=== PATIENT | male | born 1995 | race Caucasian/White ===

== ENCOUNTER 2019-02-10 13:54 | Emergency (ER) | payer SELFPAY ==
[2019-02-10] VITALS (11 sets, daily range): BP systolic 137–149; BP diastolic 81–86; PULSE 87; RESP 14; TEMP 37.1–37.2; O2SAT 95–99
[2019-02-10] MEDS: Normal Saline 1,000 ML 1000 ML IV (14:05)
--- NOTE | 2019-02-10 14:06 | W.ED.GENAD ---
Discharge Plan Disposition Patient Disposition: HOME Condition: Good Discharge Details Chief Complaint: Dizzy/Sync Clinical Impression: Hypoglycemia, Lightheadedness, Peripheral vertigo Primary Care Provider: Humberto Du ED Provider: Aleks Raymundo Home Meds and New Rx's Prescriptions: New meclizine 25 mg tablet 25 mg PO TID Qty: 14 RF: 0 Discharge Instructions Instructions: Non-diabetic Hypoglycemia (ED) Additional Instructions: Please make sure to eat small meals every 6 hours. Please drink 10-12 cups of water per day. If you notice any worsening of your symptoms, or any new symptoms such as vomiting, diarrhea, fever, chills, shortness of breath, chest pain, numbness, weakness, or fainting , please return immediately to the emergency department for reevaluation. Please follow up with your primary care provider as soon as possible for reassessment and reevaluation. As always, it was a pleasure participating in your medical care today. Referrals: Humberto Du [Primary Care Provider] - Medical Decision Making This is a 23-year-old male who presents today for evaluation of near syncope. The patient states that he was playing video games this morning, he had not eaten for over 12 hours, and he drank very little liquid. He began to feel dizzy and lightheaded. EMS arrived and his Accu-Chek was noted to be 55, he is given maple sugar, and by the time he arrived in the ER it was greater than 130. He is feeling much better at this time. Exam demonstrates mild horizontal nystagmus, no neurologic deficits. Bedside limited cardiac echo demonstrates excellent cardiac motility, normal ejection fraction, and no pericardial effusion. EKG is benign with no evidence of WPW, dagger like Q waves, hypertrophic cardiomyopathy, Brugada, or other abnormalities. Feel the patient signs and symptoms are clinically consistent with mild hypoglycemia secondary to a lack of oral intake, we will rehydrate, monitor sugar, reassess. We will give him meclizine for his dizziness, I feel he can most likely discharged home. I see no indication for immediate neuroimaging at this time with normal neurologic exam and complete resolution of his symptomatology after sugar intake. 2:59 PM Patient is feeling much better after meclizine, vital signs are notably reassuring, laboratory workup is benign with no significant electrolyte abnormalities. I feel his symptoms are secondary to dehydration, and the lack of appropriate oral intake. He is feeling much better at this time, would like to go home. Patient will be discharged with meclizine, instructions for continued good hydration and oral intake. I have extensively reviewed the treatment plan and discharge instructions with the patient and their family. I have addressed all patient concerns at this time. The patient and family was made aware of what symptoms to monitor for that would warrant a return to the emergency department. Discussed the plan with the patient and family, they demonstrate verbal understanding and agreement with our assessment and plan at this time. EKG 14: 04 Rate 78, intervals normal, sinus rhythm, no significant ST elevations or depressions, no T wave inversions, no significant Q waves. No evidence of WPW, epsilon wave, or delta wave. HPI General Date/Time Provider Initiated Documentation: 02/10/19 14:04. HPI Narrative: This is a 23-year-old male with no past medical history, who presents today for evaluations of feeling lightheaded. The patient last ate at 1 AM yesterday, he was up during the night playing video games, and then still playing video games this morning. He felt lightheaded, dizzy, slightly sweaty while playing these videogames, contacted EMS, initial blood sugar was noted to be 55, he was given maple syrup per protocol, and following this his blood sugar improved to the mid 70s. He otherwise had no complaints, no actual syncope. He denied chest pain, shortness of breath, numbness, tingling, weakness, headache, vision changes, vomiting, or diarrhea. He was transported to the ER, where his blood sugar was noted to be 134. He is feeling much better at this time. He has no additional complaints. He denies any pertinent family history of Sahil-Danlos syndrome, Marfan syndrome, sudden cardiac , intracranial aneurysms, AAA's, or aortic dissections. He has no other complaints at this time. He has no family history of diabetes. Related Data Home Medications Medication Instructions Recorded Confirmed meclizine 25 mg PO TID #14 tab 02/10/19 Previous Rx's Medication Instructions Recorded meclizine 25 mg PO TID #14 tab 02/10/19 Allergies Allergy/AdvReac Type Severity Reaction Status Date / Time amoxicillin Allergy Unverified 02/10/19 14:12 bee venom protein (honey bee) Allergy Unverified 02/10/19 14:12 General Stated Complaint: Dizzy/Sync KIP: 3 Review of Systems Review of Systems All systems reviewed & are unremarkable except as noted in HPI and below PFSH Social History Smoking/Tobacco Use Status: Current every day Tobacco Type: cigarettes Years smoked: 11 Alcohol Intake: current Alcohol Intake frequency: a few times a week Alcohol type: beer Drug use: Daily Substance use type: marijuana Do you feel safe at home: Yes Do you feel safe in your relationship?: Yes Exam Narrative Exam Narrative: 1.Const: Well-nourished, Well-developed, appearing stated age 2.Eyes: PERRL, no conjunctival injection, and symmetrical lids. 3.ENT: Atraumatic external nose and ears. dry MM. Neck: Symmetric, trachea midline, No thyromegaly. 4.CVS: +S1/S2, No murmurs or gallops. Peripheral pulses 2+ and equal in all extremities. Brisk capillary refill in all extremities. 5.RESP: Unlabored respiratory effort. Clear to auscultation bilaterally. No wheezes rales or rhonchi 6.GI: Soft, Nontender/Nondistended, No hepatosplenomegaly. No guarding or rebound. 7.MSK: Normocephalic/Atraumatic, Extremities w/o deformity or ttp No cyanosis or clubbing, Normal movement of all extremities 8.Skin: Warm, Dry. No rashes or lesions. 9.Neuro: bar tender II-XII grossly intact. Sensation grossly intact, no focal neurologic deficits. All 6 cardinal planes of vision are fully intact. No evidence of rotatory or vertical nystagmus. The patient demonstrated a normal [id number], good dexterity. There was no evidence of dysdiadochokinesia. Patient was able to ambulate without difficulty. There was no wide-based gait. Romberg, and hngi-uc-zdei are both normal on testing. Sensation was intact bilaterally as well as muscle strength bilaterally for all extremities. Patient was able to verbalize butter cup with no slurring, or miss pronunciation. Cerebellar function testing is normal. The patient demonstrates a normal hints exam with no findings concerning for a central event. No vertical nystagmus. The patient does have notable horizontal nystagmus. the head impulse test is negative for any significant central abnormality. Normal test of skew. No suggestion of a central cerebellar event. 10.Psych: (AAO) x3. Appropriate mood and affect Course Vital Signs Temperature 37.2 C 02/10/19 13:54 Pulse 87 02/10/19 13:54 Respiratory Rate 14 02/10/19 13:54 Blood Pressure 149/81 H 02/10/19 13:54 Pulse Oximetry 97 02/10/19 13:54 Temperature 37.2 C 02/10/19 13:54 Temperature Source Temporal Artery Scan 02/10/19 13:54 Pulse 87 02/10/19 13:54 Respiratory Rate 14 02/10/19 13:54 Blood Pressure 149/81 H 02/10/19 13:54 Blood Pressure Position Sitting 02/10/19 13:54 Pulse Oximetry 97 02/10/19 13:54 Oxygen Delivery Method Room Air 02/10/19 13:54 Oxygen Flow Rate 0 02/10/19 13:54 Pain Level 0 02/10/19 13:54
[2019-02-10] MEDS: Meclizine 25 MG TAB PO (14:09)
[2019-02-10 14:18] LABS: Abs Immature Grans 0.01 k/cumm (0.0-0.09); Absolute Basophil Count 0.03 k/cumm (0.0-0.2); Absolute Eosinophil Count 0.22 k/cumm (0.0-0.7); Absolute Monocyte Count 0.73 k/cumm (0.11-0.7); Absolute Neutrophil Count 3.94 k/cumm (1.2-6.7); Basophils % 0.4; Eosinophils % 2.9; HCT 49.2 % (40.0-50.0); HGB 17.2 g/dL (13.5-17.5); Immature Grans % 0.1; Lymphocytes % 35.4; Mean Corpuscular Hemoglobin 29.6 pg (27.0-33.0); Mean Corpuscular Volume 84.5 fL (80-95); Mean Platelet Volume 9.3 fL (8.0-11.0); Monocytes % 9.6; Neutrophils % 51.6; Platelet Count 338 x1000/uL (130-400); RBC 5.82 m/cumm (4.50-6.00); RBC Distribution Width 12.5 % (11.8-14.1); White Blood Cell Count 7.63 k/cumm (4.4-10.8)
--- NOTE | 2019-02-10 14:18 | ED.GENADUL_ITS ---
Discharge Plan Disposition Patient Disposition: HOME Condition: Good Discharge Details Chief Complaint: Dizzy/Sync Clinical Impression: Hypoglycemia, Lightheadedness, Peripheral vertigo Primary Care Provider: Humberto Du ED Provider: Aleks Raymundo Home Meds and New Rx's Prescriptions: New meclizine 25 mg tablet 25 mg PO TID Qty: 14 RF: 0 Discharge Instructions Instructions: Non-diabetic Hypoglycemia (ED) Additional Instructions: Please make sure to eat small meals every 6 hours. Please drink 10-12 cups of water per day. If you notice any worsening of your symptoms, or any new symptoms such as vomiting, diarrhea, fever, chills, shortness of breath, chest pain, numbness, weakness, or fainting , please return immediately to the emergency department for reevaluation. Please follow up with your primary care provider as soon as possible for reassessment and reevaluation. As always, it was a pleasure participating in your medical care today. Referrals: Humberto Du [Primary Care Provider] - Medical Decision Making This is a 23-year-old male who presents today for evaluation of near syncope. The patient states that he was playing video games this morning, he had not eaten for over 12 hours, and he drank very little liquid. He began to feel dizzy and lightheaded. EMS arrived and his Accu-Chek was noted to be 55, he is given maple sugar, and by the time he arrived in the ER it was greater than 130. He is feeling much better at this time. Exam demonstrates mild horizontal nystagmus, no neurologic deficits. Bedside limited cardiac echo demonstrates excellent cardiac motility, normal ejection fraction, and no pericardial effusion. EKG is benign with no evidence of WPW, dagger like Q w aves, hypertrophic cardiomyopathy, Brugada, or other abnormalities. Feel the patient signs and symptoms are clinically consistent with mild hypoglycemia secondary to a lack of oral intake, we will rehydrate, monitor sugar, reassess. We will give him meclizine for his dizziness, I feel he can most likely discharged home. I see no indication for immediate neuroimaging at this time with normal neurologic exam and complete resolution of his symptomatology after sugar intake. 2:59 PM Patient is feeling much better after meclizine, vital signs are notably reassuring, laboratory workup is benign with no significant electrolyte abnormalities. I feel his symptoms are secondary to dehydration, and the lack of appropriate oral intake. He is feeling much better at this time, would like to go home. Patient will be discharged with meclizine, instructions for continued good hydration and oral intake. I have extensively reviewed the treatment plan and discharge instructions with the patient and their family. I have addressed all patient concerns at this time. The patient and family was made aware of what symptoms to monitor for that would warrant a return to the emergency department. Discussed the plan with the patient and family, they demonstrate verbal understanding and agreement with our assessment and plan at this time. EKG 14: 04 Rate 78, intervals normal, sinus rhythm, no significant ST elevations or depressions, no T wave inversions, no significant Q waves. No evidence of WPW, epsilon wave, or delta wave. HPI General Date/Time Provider Initiated Documentation: 02/10/19 14:04 . HPI Narrative: This is a 23-year-old male with no past medical history, who presents today for evaluations of feeling lightheaded. The patient last ate at 1 AM yesterday, he was up during the night playing video games, and then still playing video games this morning. He felt lightheaded, dizzy, slightly sweaty while playing these videogames, contacted EMS, initial blood sugar was noted to be 55, he was given maple syrup per protocol, and following this his blood sugar improved to the mid 70s. He otherwise had no complaints, no actual syncope. He denied chest pain, shortness of breath, numbness, tingling, weakness, headache, vision changes, vomiting, or diarrhea. He was transported to the ER, where his blood sugar was noted to be 134. He is feeling much better at this time. He has no additional complaints. He denies any pertinent family history of Sahil- Danlos syndrome, Marfan syndrome, sudden cardiac , intracranial aneurysms, AAA's, or aortic dissections. He has no other complaints at this time. He has no family history of diabetes. Related Data Home Medications Medication Instructions Recorded Confirmed meclizine 25 mg PO TID #14 tab 02/10/19 Previous Rx's Medication Instructions Recorded meclizine 25 mg PO TID #14 tab 02/10/19 Allergies Allergy/AdvReac Type Severity Reaction Status Date / Time amoxicillin Allergy Unverified 02/10/19 14:12 bee venom protein (honey bee) Allergy Unverified 02/10/19 14:12 General Stated Complaint: Dizzy/Sync KIP: 3 Review of Systems Review of Systems All systems reviewed & are unremarkable except as noted in HPI and below PFSH Social History Smoking/Tobacco Use Status: Current every day Tobacco Type: cigarettes Years smoked: 11 Alcohol Intake: current Alcohol Intake frequency: a few times a week Alcohol type: beer Drug use: Daily Substance use type: marijuana Do you feel safe at home: Yes Do you feel safe in your relationship?: Yes Exam Narrative Exam Narrative: 1.Const: Well-nourished, Well-developed, appearing stated age 2.Eyes: PERRL, no conjunctival injection, and symmetrical lids. 3.ENT: Atraumatic external nose and ears. dry MM. Neck: Symmetric, trachea midline, No thyromegaly. 4.CVS: +S1/S2, No murmurs or gallops. Peripheral pulses 2+ and equal in all extremities. Brisk capillary refill in all extremities. 5.RESP: Unlabored respiratory effort. Clear to auscultation bilaterally. No wheezes rales or rhonchi 6.GI: Soft, Nontender/Nondistended, No hepatosplenomegaly. No guarding or rebound. 7.MSK: Normocephalic/Atraumatic, Extremities w/o deformity or ttp No cyanosis or clubbing, Normal movement of all extremities 8.Skin: Warm, Dry. No rashes or lesions. 9.Neuro: scheduling clerk II-XII grossly intact. Sensation grossly intact, no focal neurologic deficits. All 6 cardinal planes of vision are fully intact. No evidence of rotatory or vertical nystagmus. The patient demonstrated a normal elmpqs-djce-torawv, good dexterity. There was no evidence of dysdiadochokinesia. Patient was able to ambulate without difficulty. There was no wide-based gait. Romberg, and dipj-qn-qfrx are both normal on testing. Sensation was intact bilaterally as well as muscle strength bilaterally for all extremities. Patient was able to verbalize butter cup with no slurring, or miss pronunciation. Cerebellar function testing is normal. The patient demonstrates a normal hints exam with no findings concerning for a central event. No vertical nystagmus. The patient does have notable horizontal nystagmus. the head impulse test is neg ative for any significant central abnormality. Normal test of skew. No suggestion of a central cerebellar event. 10.Psych: (AAO) x3. Appropriate mood and affect Course Vital Signs Temperature 37.2 C 02/10/19 13:54 Pulse 87 02/10/19 13:54 Respiratory Rate 14 02/10/19 13:54 Blood Pressure 149/81 H 02/10/19 13:54 Pulse Oximetry 97 02/10/19 13:54 Temperature 37.2 C 02/10/19 13:54 Temperature Source Temporal Artery Scan 02/10/19 13:54 Pulse 87 02/10/19 13:54 Respiratory Rate 14 02/10/19 13:54 Blood Pressure 149/81 H 02/10/19 13:54 Blood Pressure Position Sitting 02/10/19 13:54 Pulse Oximetry 97 02/10/19 13:54 Oxygen Delivery Method Room Air 02/10/19 13:54 Oxygen Flow Rate 0 02/10/19 13:54 Pain Level 0 02/10/19 13:54
[2019-02-10] MEDS: Acetaminophen 500 MG TAB (14:39)
[2019-02-10 14:40] LABS: ALT 120 U/L (12-78); AST 32 U/L (15-37); Albumin 4.3 g/dL (3.4-5.0); Alkaline Phosphatase 101 U/L (46-116); Anion Gap 11.5 mmol/L (3-11); BUN 13 mg/dL (7-18); Bilirubin, Total 0.4 mg/dL (0.2-1.0); CO2 25.5 mmol/L (21.0-32.0); CREATININE 0.96 mg/dL (0.70-1.30); Calcium 9.3 mg/dL (8.5-10.1); Chloride 100 mmol/L (98-107); Glucose 153 mg/dL (70-100); Potassium 3.6 mmol/L (3.5-5.1); Sodium 137 mmol/L (136-145); Total Protein 8.3 g/dL (6.4-8.2)
[2019-02-10] MEDS: Ibuprofen 800 MG TAB (14:40)
[2019-02-10] MEDS: Meclizine 25 MG TAB (15:09)
== END 2019-02-10 15:16 | disposition home or self-care (01) ==
LOC: ER 15:04
PROVIDERS: Emergency Provider Student in an Organized Health Care Education/Training Program; PCP Family Medicine
DX: E16.2 Hypoglycemia, unspecified (principal); H81.399 Other peripheral vertigo, unspecified ear; R42 Dizziness and giddiness
CPT/HCPCS: 36415; 36416; 80053; 82962; 93005; 96360; 99284; 85025; 93010

== ENCOUNTER 2019-02-24 14:46 | Emergency (ER) | payer SELFPAY ==
[2019-02-24 14:48] VITALS: PULSE 104; RESP 20; TEMP 36.8; O2SAT 94
--- NOTE | 2019-02-24 15:09 | W.ED.GENAD ---
Discharge Plan Disposition Patient Disposition: HOME Condition: Stable Discharge Details Chief Complaint: Dizzy/Sync Clinical Impression: Ear infection, Sinusitis, Retained myringotomy tube in right ear, Vertigo Primary Care Provider: Humberto Du ED Provider: Estee Webber Home Meds and New Rx's Prescriptions: New prednisone 50 mg tablet 50 mg PO DAILY 4 Days Qty: 4 RF: 0 ofloxacin 0.3 % drops 10 drp OT DAILY 7 Days Qty: 1 RF: 0 clindamycin HCl 150 mg capsule 450 mg PO QID 10 Days Qty: 120 RF: 0 benzonatate [Tessalon Perles] 100 mg capsule 100 mg PO TID PRN (Reason: cough) Qty: 10 RF: 0 Continued meclizine 25 mg tablet 25 mg PO TID Qty: 14 RF: 0 Discharge Instructions Instructions: Sinusitis (ED), Ear Foreign Body (ED), Vertigo (ED), Otitis Media (ED) Additional Instructions: Take the antibiotics and steroids until finished. Use the Compazine and meclizine as needed directed for any dizziness or nausea. You can go to [facility] for assistance with filling your prescriptions. Call the ear nose and throat doctors office tomorrow to schedule a follow-up appointment for reevaluation on Thursday. You should receive a call from care management regarding a follow-up appointment with a primary care doctor. Return immediately to the emergency department with any worsening or concerning symptoms. Referrals: Adriel Stauffer DO [OSTEOPATHIC DOCTOR] - Discharge Data Discharge Date/Time-TO BE ENTERED AT DEPARTURE: 02/24/19 17:30 Discharge Physician: Estee Webber Medical Decision Making 23yo M who presents with vertigo like dizziness for the past 5 days. Seen here 2 weeks ago for similar complaint after playing video games and had a negative work-up and discharged home with meclizine. His EKG at that time noted a rate of 78 and sinus. Oxygen saturation 94% on room air. Patient has a right ear tube retained in right ear canal with surrounding yellowish fluid. Patient has minimal scattered wheezing throughout. Bilateral horizontal nystagmus. Reproducible vertigo with head movement. No focal deficits. Discussed with patient that it is possible that his symptoms are due to a retained right ear tube with surrounding infection. Also discussed that his symptoms could be due to possible viral/bacterial pneumonia, sinusitis. Will place an IV, bolus IV fluids, recheck labs, chest x-ray and give a dose of meclizine, prednisone and albuterol neb treatment and reassess. 1545 --patient states the spinning sensation is resolved but now complaining of generalized dizziness. Will give a dose of Compazine and reassess. Will obtain a CT head. 1640 --patient feels significantly better. Denies any dizziness at this time. Declining any further neb treatments. 1655 --CT head notes diffuse pansinusitis. Patient is feeling much better requesting to go home. Will send home with a prescription for steroids to treat for a possible ear infection/sinus infection. Discussed with ENT Dr. Stauffer and he recommended Augmentin and Floxin otic and will follow up with patient on Thursday. As patient is significantly better, appears nontoxic, afebrile, with normal white blood cell count, likely does not need a dedicated CT temporal bones at this time but this could be a consideration if symptoms do not improve or worsen. Patient is allergic to amoxicillin, so a prescription for clindamycin given. Patient had expressed difficulty with obtaining prescriptions due to lack of funds, and doses of medication were given here and for home as well as information for community connections. Medical Records Medical records reviewed: Yes I reviewed the patient's medical records. Imaging Data Radiologic Study: Radiologist's impression: PA AND LATERAL CHEST: The heart is normal in size. The lungs are clear. The mediastinal structures and pleura appear intact. CONCLUSION: Normal chest. Radiologic Study #2: Radiologist's impression: CT Head Without Contrast EXAM DATE/TIME: 02/24/2019 4:00 PM FINDINGS: Brain: Normal. No hemorrhage. No significant white matter disease. No edema. Ventricles: Normal. No ventriculomegaly. Bones/joints: Unremarkable. No acute fracture. Sinuses: Diffuse pansinusitis sparing the frontal sinuses. Mastoid air cells: Visualized mastoid air cells are unremarkable. No mastoid effusion. Soft tissues: Unremarkable. IMPRESSION: Diffuse pansinusitis sparing the frontal sinuses. Normal brain. Lab Data Lab results reviewed: Yes I reviewed the patient's lab results. HPI General Mode of arrival: ambulatory. Date/Time Provider Initiated Documentation: 02/24/19 14:54. Limitations to Documentation: no limitations. Information obtained by: patient. HPI Narrative: Patient is a 23-year-old male with no significant past medical history who presents to the ED with a complaint of spinning sensation for the past 4 days. Also admits to occasional nausea but denies any vomiting. He also admits to occasional right-sided ear pain and ringing.. Patient states he had bilateral ear tubes placed 8 7 and was told recently by that the right ear tube was still present. Patient was seen here 2 weeks ago for similar complaint of dizziness after playing video games and had a negative work-up and was discharged home with meclizine. Patient states the tabs of meclizine he was sent home with significantly helped his dizziness but he was unable to fill the prescription due to financial reasons. Patient also admits to cough with yellow sputum and shortness of breath over the past few days. He denies any chest pain or known fevers. He admits to occasional headache and blurry vision but denies any at present. He denies any neck pain. Related Data Home Medications Medication Instructions Recorded Confirmed meclizine 25 mg PO TID #14 tab 02/10/19 02/24/19 benzonatate [Tessalon Perles] 100 mg PO TID PRN #10 cap 02/24/19 clindamycin HCl 450 mg PO QID 10 Days #120 cap 02/24/19 ofloxacin 10 drp OT DAILY 7 Days #1 ml 02/24/19 prednisone 50 mg PO DAILY 4 Days #4 tab 02/24/19 Previous Rx's Medication Instructions Recorded meclizine 25 mg PO TID #14 tab 02/10/19 benzonatate [Tessalon Perles] 100 mg PO TID PRN #10 cap 02/24/19 clindamycin HCl 450 mg PO QID 10 Days #120 cap 02/24/19 ofloxacin 10 drp OT DAILY 7 Days #1 ml 02/24/19 prednisone 50 mg PO DAILY 4 Days #4 tab 02/24/19 Allergies Allergy/AdvReac Type Severity Reaction Status Date / Time amoxicillin Allergy Unverified 02/24/19 14:51 bee venom protein (honey bee) Allergy Unverified 02/24/19 14:51 General Stated Complaint: Dizzy/Sync KIP: 4 Review of Systems Review of Systems All systems reviewed & are unremarkable except as noted in HPI and below Constitutional Reports as per HPI, Denies chills and Denies fever(s) Eyes Denies blurry vision ENT Reports dizziness, Reports otalgia, Denies sore throat and Denies throat swelling Cardiovascular Denies chest pain and Denies dyspnea Respiratory Denies cough and Denies dyspnea Gastrointestinal Denies abdominal pain, Denies diarrhea, Reports nausea and Denies vomiting Genitourinary Denies hematuria and Denies dysuria Musculoskeletal Denies back pain and Denies numbness Integumentary/Breasts Denies lesions and Denies rash Neurologic Reports dizziness, Denies focal weakness and Denies numbness Allergic/Immunologic Denies throat swelling [facility] Medical History No significant past medical history (Acute) Surgical History History of placement of ear tubes (Acute) Social History Smoking/Tobacco Use Status: Current every day Tobacco Type: cigarettes Alcohol Intake: former Drug use: Daily Substance use type: marijuana Do you feel safe at home: Yes Do you feel safe in your relationship?: Yes Exam Const General: cooperative and healthy appearing Orientation: alert and awake HENMT Head: normal to inspection Ears: hearing grossly normal bilaterally, external ears normal and other (Tube noted within R ear canal with surrounding yellow discharge. ) General nose exam: external nose normal Face and sinus: normal facial exam Mouth: oral mucosae normal Teeth and gingiva: dentition normal Throat: posterior oropharynx normal Eyes General: appearance normal, both eyes and all related structures Eyelids: eyelids normal Pupils: PERRL EOM: EOM intact bilaterally and nystagmus (b/l horizontal) Neck Neck: normal visual inspection Lymphatic: no lymphadenopathy noted Chest Chest: normal inspection of the chest Resp Effort & Inspection: normal respiratory effort and able to speak in complete sentences Auscultation: clear to auscultation bilaterally Cardio Rate: regular rate Rhythm: regular rhythm GI Inspection: normal to inspection Palpation: soft, not firm, no guarding, no hepatosplenomegaly, no masses and nontender Auscultation: normal bowel sounds Back/Spine/Pelvis Back: no CVA tenderness Skin General skin exam: no rashes or lesions noted Neuro General: alert, awake, oriented x3, gait normal, moves all extremities, no meningeal signs, no focal motor deficits and CN's II-XI intact bilaterally Cranial Nerves: nystagmus (b/l horizontal) Cognition: normal cognition Speech: speech normal Gait: normal gait Motor: muscle tone normal throughout and strength 5/5 throughout Sensory Exam: no sensory deficits noted Extrem General: normal to inspection, full ROM and normal capillary refill Psych Appearance: grossly normal Mental Status: mental status grossly normal Speech and Movement: speech and movement normal Affect: normal affect Thought Process: normal Course Vital Signs Temperature 98.2 F 02/24/19 14:48 Pulse 104 H 02/24/19 14:48 Respiratory Rate 20 02/24/19 14:48 Pulse Oximetry 94 L 02/24/19 14:48 Temperature 98.2 F 02/24/19 14:48 Pulse 104 H 02/24/19 14:48 Respiratory Rate 20 02/24/19 14:48 Respiratory Effort Non-Labored 02/24/19 14:48 Pulse Oximetry 94 L 02/24/19 14:48 Oxygen Delivery Method Room Air 02/24/19 14:48 Oxygen Flow Rate 0 02/24/19 14:48 End Tidal Co2 149 02/24/19 14:48 Pain Level 5 02/24/19 14:48
--- NOTE | 2019-02-24 15:10 | DI.RAD_ITS ---
SYMPTOMS/DIAGNOSIS: COUGH, SHORTNESS OF BREATH, ? PNEUMONIA PA AND LATERAL CHEST: The heart is normal in size. The lungs are clear. The mediastinal structures and pleura appear intact. CONCLUSION: Normal chest.
[2019-02-24] MEDS: Albuterol/Ipratropium 3 ML UPD VIAL UPD (15:26)
[2019-02-24] MEDS: Meclizine 25 MG TAB PO (15:27)
[2019-02-24] MEDS: Normal Saline 1,000 ML 1000 ML IV (15:27)
[2019-02-24 15:33] LABS: Abs Immature Grans 0.01 k/cumm (0.0-0.09); Absolute Basophil Count 0.04 k/cumm (0.0-0.2); Absolute Eosinophil Count 0.19 k/cumm (0.0-0.7); Absolute Lymphocyte Count 2.38 k/cumm (1.2-3.4); Absolute Monocyte Count 0.68 k/cumm (0.11-0.7); Absolute Neutrophil Count 4.38 k/cumm (1.2-6.7); Basophils % 0.5; Eosinophils % 2.5; HCT 48.3 % (40.0-50.0); HGB 17.2 g/dL (13.5-17.5); Immature Grans % 0.1; Mean Corp. HGB Concentration 35.6 g/dL (32.0-36.0); Mean Corpuscular Hemoglobin 29.9 pg (27.0-33.0); Mean Corpuscular Volume 83.9 fL (80-95); Mean Platelet Volume 9.7 fL (8.0-11.0); Monocytes % 8.9; Platelet Count 361 x1000/uL (130-400); RBC 5.76 m/cumm (4.50-6.00); RBC Distribution Width 12.5 % (11.8-14.1); White Blood Cell Count 7.68 k/cumm (4.4-10.8)
[2019-02-24 15:43] LABS: BUN 14 mg/dL (7-18); CREATININE 1.14 mg/dL (0.70-1.30); Calcium 9.6 mg/dL (8.5-10.1); Chloride 101 mmol/L (98-107); Glucose 103 mg/dL (70-100); Potassium 3.9 mmol/L (3.5-5.1); Sodium 138 mmol/L (136-145)
[2019-02-24] MEDS: Prochlorperazine 10 MG/2 ML VIAL IVP (16:08)
[2019-02-24] MEDS: predniSONE 20 MG TAB 60 MG PO (16:08)
--- NOTE | 2019-02-24 16:46 | DI.CT_ITS ---
SYMPTOM/DIAGNOSIS: DIZZINESS NONCONTRAST HEAD CT: A noncontrast cranial CT was performed. Note is made of moderate mucoperiosteal thickening involving frontal, ethmoid, maxillary and sphenoid sinuses with only moderate involvement of frontal sinuses. Mastoid air cells are hypoplastic bilaterally with some fluid and soft tissue attenuation in the mastoid air cells and middle ear cavities bilaterally, question chronic otitis/serous mastoiditis. No bony destruction is seen involving the temporal bone structures or paranasal sinuses. Orbital structures appear intact. Ventricular system is normal in appearance. No evidence of intracranial hemorrhage, mass effect or midline shift. CONCLUSION: No evidence of acute intracranial process. Findings consistent with chronic pansinusitis and otitis/mastoiditis.
--- NOTE | 2019-02-24 16:49 | DI.VRAD_ITS ---
EXAM: CT Head Without Contrast EXAM DATE/TIME: 02/24/2019 4:00 PM CLINICAL HISTORY: 23 years old, male; Signs and symptoms; Patient HX: Dizziness, R/O acute process TECHNIQUE: Imaging protocol: Axial computed tomography images of the head/brain without contrast. Coronal and sagittal reformatted images were created and reviewed. Radiation optimization: All CT scans at this facility use at least one of these dose optimization techniques: automated exposure control; mA and/or kV adjustment per patient size (includes targeted exams where dose is matched to clinical indication); or iterative reconstruction. COMPARISON: No relevant prior studies available. FINDINGS: Brain: Normal. No hemorrhage. No significant white matter disease. No edema. Ventricles: Normal. No ventriculomegaly. Bones/joints: Unremarkable. No acute fracture. Sinuses: Diffuse pansinusitis sparing the frontal sinuses. Mastoid air cells: Visualized mastoid air cells are unremarkable. No mastoid effusion. Soft tissues: Unremarkable. IMPRESSION: Diffuse pansinusitis sparing the frontal sinuses. Normal brain Dictated and Authenticated by: Natasha Vidal MD. Ordering:LEON Fontanez MD
[2019-02-24] MEDS: Prochlorperazine 10 MG TAB 20 MG PO (17:15)
[2019-02-24] MEDS: Benzonatate 100 MG CAP PO ×2 (17:26)
[2019-02-24] MEDS: Albuterol HFA 8 GM 60 PUFF INH IH (17:26)
[2019-02-24] MEDS: Clindamycin 150 MG CAP 450 MG PO (17:26)
[2019-02-24 17:27] VITALS: BP 152/80; PULSE 86; RESP 18; TEMP 36.8; O2SAT 94
== END 2019-02-24 17:30 | disposition home or self-care (01) ==
PROVIDERS: Emergency Provider Physician Assistant; PCP Family Medicine
DX: H66.92 Otitis media, unspecified, left ear (principal); J01.90 Acute sinusitis, unspecified; R42 Dizziness and giddiness; Z96.22 Myringotomy tube(s) status
CPT/HCPCS: 36415; 80048; 93005; 96361; 96374; 99285; 70450; 71046; 85025; 93010; J0780; J7512; J7620

== ENCOUNTER 2019-03-13 15:35 | Emergency (ER) | payer SELFPAY ==
[2019-03-13 15:38] VITALS: BP 158/95; PULSE 80; RESP 16; TEMP 36.7; O2SAT 98
--- NOTE | 2019-03-13 15:44 | ED.GENADUL_ITS ---
Discharge Plan Disposition Patient Disposition: HOME Condition: Improving Discharge Details Chief Complaint: Headache Clinical Impression: Otitis media of right ear, Dizziness, Headache, Retained myringotomy tube in right ear Primary Care Provider: Humberto Du ED Provider: Estee Webber Home Meds and New Rx's Prescriptions: New clindamycin HCl 150 mg capsule 450 mg PO TID 7 Days Qty: 63 RF: 0 naproxen 250 mg tablet 250 mg PO BID PRN (Reason: pain) Qty: 20 RF: 0 Discharge Instructions Instructions: Otitis Media (ED) Additional Instructions: Apply the Ciprodex eardrops 3 drops twice daily in the right ear for the next 10 days. Take the clindamycin antibiotic as directed until finished. Take the naproxen medication as needed and directed for pain. You will receive a call from care management regarding a follow-up appointment with ear nose and throat doctor this week. Return immediately to the emergency department with any worsening or new concerning symptoms. Referrals: Adriel Stauffer DO [OSTEOPATHIC DOCTOR] - Sarthak Perera MD [ [facility] STAFF PHYSICIAN] - Discharge Data Discharge Date/Time-TO BE ENTERED AT DEPARTURE: 03/13/19 21:38 Discharge Physician: Estee Webber Medical Decision Making 23-year-old male presents with chronic dizziness and headache for the past few weeks. Has been treated for sinusitis in the past at multiple different hospitals. Most recently was seen here earlier this month and diagnosed with likely sinus infection and was given antibiotics and steroids but he states he was unable to fill these due to lack of funds. Patient has a retained right ear tube which she states was placed at age 5. There appears to be a yellowish fluid within here which could be possibly pus. He has no focal deficits on exam. Differential diagnosis includes migraines, deep ear infection such as abscess, vertigo, dehydration, sinusitis. He has no focal meningeal signs and denies any fever or neck pain so do not suspect meningitis. Will place an IV, labs, CT head and temporal bones and give a dose of Toradol and fluids. 1900 --labs and imaging reviewed. Normal white blood cell count. CT head notes opacities in the middle ear, right worse than left may represent information or infection. No other acute findings. CT temporal bones notes extensive opacification of the mastoid air cells bilaterally as well as extensive right and moderate left opacification of the middle ear canals and mild opacification of the right posterior external ear canal findings worrisome for otomastoiditis. No bony destruction or soft tissue abscess. 1999 --d/w ENT -if patient has no fever and no external signs of mastoiditis, not consistent with mastoiditis. Recommends to treat this as an otitis media with purulent discharge which could be consistent with causing his headache and vertigo. As patient has been given multiple prescription for antibiotics in the past including Ciprodex and clindamycin and has not filled them, he has not been taking proper treatment for this. Recommend Ciprodex HC and clindamycin. Recommends follow-up with ENT here or can follow-up with [facility]. Patient feels significantly better and his dizziness and headache is significantly improved. Patient states he feels good to go home. Was sent home with a prescription for naproxen, and clindamycin. Patient was given Ciprodex bottle to go. We will also send home with 4 doses of clindamycin. Patient placed on care management list to help arrange for follow-up appointment with ENT here to this week. Patient instructed to return here immediately with any worsening or new concerning symptoms. Medical Records Medical records reviewed: Yes I reviewed the patient's medical records. Imaging Data Radiologic Study: Radiologist's impression: CT Head Without Contrast EXAM DATE/TIME: 03/13/2019 4:08 PM CLINICAL HISTORY: 23 years old, male; Signs and symptoms; Other: Headache, dizziness TECHNIQUE: Imaging protocol: Axial computed tomography images of the head without contrast. Coronal and sagittal reformatted images were created and reviewed. Radiation optimization: All CT scans at this facility use at least one of these dose optimization techniques: automated exposure control; mA and/or kV adjustment per patient size (includes targeted exams where dose is matched to clinical indication); or iterative reconstruction. COMPARISON: CT HEAD WO 02/24/2019 4:33 PM FINDINGS: Brain: Normal. No hemorrhage. Unremarkable white matter. No mass effect. Ventricles: Normal. No ventriculomegaly. Bones/joints: Unremarkable. No acute fracture. Sinuses: The opacity in the sinuses seen on the prior study has mostly resolved. Mastoid air cells: Visualized mastoid air cells are well aerated. No mastoid effusion. Auditory system: Opacities in the middle ear, right worse than left, may represent inflammation or infection (3:8). Soft tissues: Unremarkable. IMPRESSION: 1. Opacities in the middle ear, right worse than left, may represent inflammation or infection (3:8). 2. The opacity in the sinuses seen on the prior study has mostly resolved. 3. No acute intracranial hemorrhage Radiologic Study #2: Radiologist's impression: CT Temporal Bones With Contrast. EXAM DATE/TIME: 03/13/2019 4:08 PM CLINICAL HISTORY: 23 years old, male; Signs and symptoms; Sinusitis and other: RT ear pain; Acute; Patient HX: Rule out abscess TECHNIQUE: Imaging protocol: Axial computed tomography images of the temporal bones with intravenous contrast. Coronal and sagittal reformatted images were created and reviewed. Radiation optimization: All CT scans at this facility use at least one of these dose optimization techniques: automated exposure control; mA and/or kV adjustment per patient size (includes targeted exams where dose is matched to clinical indication); or iterative reconstruction. Contrast material: OMNIPAQUE 350; Contrast volume: 100 ml; Contrast route: IV; COMPARISON: CT HEAD WO 03/13/2019 5:09 PM FINDINGS: Right ossicles and middle ear: See below. Right inner ear: Normal. Right facial nerve canal: Normal. Right internal auditory canal: Normal. Right external auditory canal: Normal. Right carotid canal: Normal. Right mastoid air cells: There is extensive opacification of the mastoid air cells bilaterally, which are not well aerated. Right temporomandibular joint: Normal. Left ossicles and middle ear: See below. Left inner ear: Normal. Left facial nerve canal: Normal. Left internal auditory canal: Normal. Left external auditory canal: Normal. Left carotid canal: Normal. Left mastoid air cells: See above. Left temporomandibular joint: Normal. Sinuses: There is a small left inferior maxillary sinus polyp or mucous retention cyst. There is additional opacification in the right superior maxillary sinus with opacification of the right ostiomeatal complex. Bones/joints: See Auditory System Finding. Auditory system: There is extensive right and moderate left opacification of the middle ear canals. There is no erosion of the ossicles. The scutum appears intact. There is mild opacification of the right posterior external ear canal. IMPRESSION: 1. There is extensive opacification of the mastoid air cells bilaterally, which are not well aerated. 2. There is extensive right and moderate left opacification of the middle ear canals. There is no erosion of the ossicles. The scutum appears intact. 3. There is mild opacification of the right posterior external ear canal. Additional mild sinus thickening as detailed above. Findings are worrisome for otomastoiditis. There is no bony destruction to suggest cholesteatoma. No enhancing soft tissue abscess is seen. Lab Data Lab results reviewed: Yes I reviewed the patient's lab results. Laboratory Tests Range/Units 03/13/19 03/13/19 16:30 16:30 WBC (4.4-10.8) k/cumm 6.43 RBC (4.50-6.00) m/cumm 5.70 Hgb (13.5-17.5) g/dL 17.0 Hct (40.0-50.0) % 48.4 MCV (80-95) fL 84.9 MCH (27.0-33.0) pg 29.8 MCHC (32.0-36.0) g/dL 35.1 RDW (11.8-14.1) % 12.7 Plt Count (130-400) x1000/uL 335 MPV (8.0-11.0) fL 9.6 Immature Gran % 0.2 Neutrophils % 57.0 Lymphocytes % 29.2 Monocytes % 9.5 Eosinophils % 3.6 Basophils % 0.5 Absolute Neutrophils (1.2-6.7) k/cumm 3.67 Absolute Lymphocytes (1.2-3.4) k/cumm 1.88 Absolute Monocytes (0.11-0.7) k/cumm 0.61 Absolute Eosinophils (0.0-0.7) k/cumm 0.23 Absolute Basophils (0.0-0.2) k/cumm 0.03 Sodium (136-145) mmol/L 137 Potassium (3.5-5.1) mmol/L 3.9 Chloride (98-107) mmol/L 101 Carbon Dioxide (21.0-32.0) mmol/L 27.0 Anion Gap (3-11) mmol/L 9.0 BUN (7-18) mg/dL 9 Creatinine (0.70-1.30) mg/dL 0.89 Estimated GFR/1.73 m2 (mL/min/1.73m2) >= 60.00 Glucose (70-100) mg/dL 97 Calcium (8.5-10.1) mg/dL 9.6 Total Bilirubin (0.2-1.0) mg/dL 0.9 AST (15-37) U/L 46 H ALT (12-78) U/L 180 H Alkaline Phosphatase (46-116) U/L 80 Total Protein (6.4-8.2) g/dL 8.0 Albumin (3.4-5.0) g/dL 4.3 HPI General Mode of arrival: ambulatory . Date/Time Provider Initiated Documentation: 03/13/19 15:42 . Limitations to Documentation: no limitations . Information obtained by: patient . HPI Narrative: Patient is a 23-year-old male who presents the ED with a complaint of chronic dizziness and headaches for the past few weeks. Patient was seen here 2 weeks ago for the same complaint and diagnosed with sinus infection and sent home with antibiotics and steroids. Patient states he did not have the money to fill these and did not take them. Patient states he was seen at a hospital in [facility] for the symptoms and was diagnosed with sinusitis and sent home with Bactrim. Patient states he also did not have any funds at that time and states he was given a $20 bill by the physician to fill his prescription for Bactrim. Patient states he had improvement of his symptoms with Bactrim until he ran out of this 3 days ago. Patient describes the headache as frontal but also occasionally radiating to both sides of his head and the back of his head. He describes the dizziness is alternating lightheadedness and vertigo. He describes the headache as pressure- like. He states at times he feels disoriented and cannot focus which is better with meclizine. He denies any ear pain, fever or vomiting. He does admit to occasional nausea. He states he cannot take steroids or Sudafed due to the increase in energy which makes him feel worse. Patient denies any ear pain or drainage. Related Data Home Medications Medication Instructions Recorded Confirmed clindamycin HCl 450 mg PO TID 7 Days #63 cap 03/13/19 naproxen 250 mg PO BID PRN #20 tab 03/13/19 Previous Rx's Medication Instructions Recorded clindamycin HCl 450 mg PO TID 7 Days #63 cap 03/13/19 naproxen 250 mg PO BID PRN #20 tab 03/13/19 Allergies Allergy/AdvReac Type Severity Reaction Status Date / Time amoxicillin Allergy Unverified 03/13/19 15:43 bee venom protein (honey bee) Allergy Unverified 03/13/19 15:43 General Stated Complaint: Headache KIP: 3 Review of Systems Review of Systems All systems reviewed & are unremarkable except as noted in HPI and below Constitutional Reports as per HPI, Denies chills, Denies fever(s) and Reports headache(s) Eyes Denies blurry vision ENT Reports dizziness, Reports headache(s), Reports disequilibrium, Denies sore throat and Denies throat swelling Cardiovascular Denies chest pain and Denies dyspnea Respiratory Denies cough and Denies dyspnea Gastrointestinal Denies abdominal pain, Denies diarrhea and Denies vomiting Genitourinary Denies hematuria and Denies dysuria Musculoskeletal Denies back pain and Denies numbness Integumentary/Breasts Denies lesions and Denies rash Neurologic Reports dizziness, Reports headache(s), Denies focal weakness, Denies numbness and Reports disequilibrium Allergic/Immunologic Denies throat swelling [facility] Medical History No significant past medical history (Acute) Surgical History History of placement of ear tubes (Acute) Social History Smoking/Tobacco Use Status: Current every day Tobacco Type: cigarettes Alcohol Intake: former Drug use: Daily Substance use type: marijuana Do you feel safe at home: Yes Do you feel safe in your relationship?: Yes Exam Const General: cooperative and healthy appearing Orientation: alert and awake [facility] Head: normal to inspection Ears: hearing grossly normal bilaterally, external ears normal and TM abnormal other (retained ear tube noted with surrouding yellow fluid - pus?. L TM within normal limits) General nose exam: external nose normal Face and sinus: normal facial exam Mouth: oral mucosae normal Teeth and gingiva: dentition normal Throat: posterior oropharynx normal Eyes General: appearance normal, both eyes and all related structures Eyelids: eyelids normal Pupils: PERRL EOM: EOM intact bilaterally Neck Neck: normal visual inspection Lymphatic: no lymphadenopathy noted Chest Chest: normal inspection of the chest Resp Effort & Inspection: normal respiratory effort and able to speak in complete sentences Auscultation: clear to auscultation bilaterally Cardio Rate: regular rate Rhythm: regular rhythm GI Inspection: normal to inspection Palpation: soft, not firm, no guarding, no hepatosplenomegaly, no masses and nontender Auscultation: normal bowel sounds Back/Spine/Pelvis Back: no CVA tenderness Skin General skin exam: no rashes or lesions noted Neuro General: alert, awake, oriented x3, moves all extremities, no meningeal signs and no focal motor deficits Cranial Nerves: CN's II-XI intact bilaterally Cognition: normal cognition Speech: speech normal Gait: normal gait Motor: muscle tone normal throughout and strength 5/5 throughout Sensory Exam: no sensory deficits noted Extrem General: normal to inspection, full ROM and normal capillary refill Psych Appearance: grossly normal Mental Status: mental status grossly normal Speech and Movement: speech and movement normal Affect: normal affect Thought Process: normal Course Vital Signs Temperature 98.1 F 03/13/19 15:38 Pulse 80 03/13/19 15:38 Respiratory Rate 16 03/13/19 15:38 Blood Pressure 158/95 H 03/13/19 15:38 Pulse Oximetry 98 03/13/19 15:38 Temperature 98.1 F 03/13/19 15:38 Temperature Source Skin 03/13/19 15:38 Pulse 80 03/13/19 15:38 Respiratory Rate 16 03/13/19 15:38 Respiratory Effort Non-Labored 03/13/19 15:42 Blood Pressure 158/95 H 03/13/19 15:38 Pulse Oximetry 98 03/13/19 15:38 Oxygen Delivery Method Room Air 03/13/19 15:38 Oxygen Flow Rate 0 03/13/19 15:38 Pain Level 7 03/13/19 15:38
--- NOTE | 2019-03-13 16:04 | DI.CT_ITS ---
SYMPTOMS/DIAGNOSIS: RIGHT EAR PAIN, DIZZINESS, HEADACHE, ? ACUTE PROCESS NONCONTRAST HEAD CT: Comparison is made with 2 Feb, 2019. No intracranial hemorrhage, mass or infarct is seen. There has been substantial interval clearing of previously noted sinus disease. Both mastoid air cells appear poorly aerated and appear hypoplastic. There is again noted to be fluid or soft tissue attenuation in the internal auditory canals, right greater than left. The orbits are unremarkable. IMPRESSION: 1. Opacities in both middle ear cavities, unchanged. There is no evidence of bony obstruction. 2. The mastoid air cells appear hypoplastic. CT OF THE TEMPORAL BONES: A post contrast exam was performed. The mastoid air cells appear hypoplastic. There is some opacification of the mastoid air cells. There is also opacification of both middle ear canals. There is no evidence of an ossicular erosion. There is some opacification in the right external auditory canal. No abscess is identified. The temporomandibular joints are unremarkable. IMPRESSION: Opacification of the mastoid air cells. 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 Opacification of bilateral middle ear canals and some opacification of the right external auditory canal. No bony destruction.
[2019-03-13 16:34] LABS: Abs Immature Grans 0.01 k/cumm (0.0-0.09); Absolute Basophil Count 0.03 k/cumm (0.0-0.2); Absolute Eosinophil Count 0.23 k/cumm (0.0-0.7); Absolute Lymphocyte Count 1.88 k/cumm (1.2-3.4); Absolute Monocyte Count 0.61 k/cumm (0.11-0.7); Absolute Neutrophil Count 3.67 k/cumm (1.2-6.7); Basophils % 0.5; Eosinophils % 3.6; HCT 48.4 % (40.0-50.0); Immature Grans % 0.2; Lymphocytes % 29.2; Mean Corp. HGB Concentration 35.1 g/dL (32.0-36.0); Mean Corpuscular Hemoglobin 29.8 pg (27.0-33.0); Mean Corpuscular Volume 84.9 fL (80-95); Mean Platelet Volume 9.6 fL (8.0-11.0); Monocytes % 9.5; Platelet Count 335 x1000/uL (130-400); RBC Distribution Width 12.7 % (11.8-14.1); White Blood Cell Count 6.43 k/cumm (4.4-10.8)
[2019-03-13] MEDS: Normal Saline 1,000 ML 1000 ML IV (16:35)
[2019-03-13] MEDS: Ketorolac 30 MG/ML VIAL IVP (16:36)
[2019-03-13 16:46] LABS: ALT 180 U/L (12-78); AST 46 U/L (15-37); Albumin 4.3 g/dL (3.4-5.0); Alkaline Phosphatase 80 U/L (46-116); BUN 9 mg/dL (7-18); Bilirubin, Total 0.9 mg/dL (0.2-1.0); CREATININE 0.89 mg/dL (0.70-1.30); Calcium 9.6 mg/dL (8.5-10.1); Chloride 101 mmol/L (98-107); Glucose 97 mg/dL (70-100); Potassium 3.9 mmol/L (3.5-5.1); Sodium 137 mmol/L (136-145)
[2019-03-13] MEDS: Omnipaque 350 MG/ML 100 ML BTL IJ (17:30)
--- NOTE | 2019-03-13 17:50 | DI.VRAD_ITS ---
EXAM: CT Head Without Contrast EXAM DATE/TIME: 03/13/2019 4:08 PM CLINICAL HISTORY: 23 years old, male; Signs and symptoms; Other: Headache, dizziness TECHNIQUE: Imaging protocol: Axial computed tomography images of the head without contrast. Coronal and sagittal reformatted images were created and reviewed. Radiation optimization: All CT scans at this facility use at least one of these dose optimization techniques: automated exposure control; mA and/or kV adjustment per patient size (includes targeted exams where dose is matched to clinical indication); or iterative reconstruction. COMPARISON: CT HEAD WO 02/24/2019 4:33 PM FINDINGS: Brain: Normal. No hemorrhage. Unremarkable white matter. No mass effect. Ventricles: Normal. No ventriculomegaly. Bones/joints: Unremarkable. No acute fracture. Sinuses: The opacity in the sinuses seen on the prior study has mostly resolved. Mastoid air cells: Visualized mastoid air cells are well aerated. No mastoid effusion. Auditory system: Opacities in the middle ear, right worse than left, may represent inflammation or infection (3:8). Soft tissues: Unremarkable. IMPRESSION: 1. Opacities in the middle ear, right worse than left, may represent inflammation or infection (3:8). 2. The opacity in the sinuses seen on the prior study has mostly resolved. 3. No acute intracranial hemorrhage Dictated and Authenticated by: Chapincito Millan MD. Ordering:LEON Fontanez MD
--- NOTE | 2019-03-13 18:53 | DI.VRAD_ITS ---
EXAM: CT Temporal Bones With Contrast. EXAM DATE/TIME: 03/13/2019 4:08 PM CLINICAL HISTORY: 23 years old, male; Signs and symptoms; Sinusitis and other: RT ear pain; Acute; Patient HX: Rule out abscess TECHNIQUE: Imaging protocol: Axial computed tomography images of the temporal bones with intravenous contrast. Coronal and sagittal reformatted images were created and reviewed. Radiation optimization: All CT scans at this facility use at least one of these dose optimization techniques: automated exposure control; mA and/or kV adjustment per patient size (includes targeted exams where dose is matched to clinical indication); or iterative reconstruction. Contrast material: OMNIPAQUE 350; Contrast volume: 100 ml; Contrast route: IV; COMPARISON: CT HEAD WO 03/13/2019 5:09 PM FINDINGS: Right ossicles and middle ear: See below. Right inner ear: Normal. Right facial nerve canal: Normal. Right internal auditory canal: Normal. Right external auditory canal: Normal. Right carotid canal: Normal. Right mastoid air cells: There is extensive opacification of the mastoid air cells bilaterally, which are not well aerated. Right temporomandibular joint: Normal. Left ossicles and middle ear: See below. Left inner ear: Normal. Left facial nerve canal: Normal. Left internal auditory canal: Normal. Left external auditory canal: Normal. Left carotid canal: Normal. Left mastoid air cells: See above. Left temporomandibular joint: Normal. Sinuses: There is a small left inferior maxillary sinus polyp or mucous retention cyst. There is additional opacification in the right superior maxillary sinus with opacification of the right ostiomeatal complex. Bones/joints: See Auditory System Finding. Auditory system: There is extensive right and moderate left opacification of the middle ear canals. There is no erosion of the ossicles. The scutum appears intact. There is mild opacification of the right posterior external ear canal. IMPRESSION: 1. There is extensive opacification of the mastoid air cells bilaterally, which are not well aerated. 2. There is extensive right and moderate left opacification of the middle ear canals. There is no erosion of the ossicles. The scutum appears intact. 3. There is mild opacification of the right posterior external ear canal. Additional mild sinus thickening as detailed above. Findings are worrisome for otomastoiditis. There is no bony destruction to suggest cholesteatoma. No enhancing soft tissue abscess is seen. Dictated and Authenticated by: Sacha Moon MD. Ordering:LEON Fontanez MD
[2019-03-13 19:08] VITALS: BP 146/81; PULSE 77; RESP 18; TEMP 36.6; O2SAT 97
[2019-03-13] MEDS: Clindamycin 150 MG CAP 450 MG PO (20:31)
[2019-03-13] MEDS: Ciprofloxacin/Dexameth. 7.5 ML BTL 1 ML AD (20:44)
[2019-03-13] MEDS: Clindamycin 150 MG CAP 1800 MG PO (21:34)
[2019-03-13 21:38] VITALS: BP 145/79; PULSE 78; RESP 18; TEMP 36.8; O2SAT 98
--- NOTE | 2019-03-14 07:52 | CMPROGNOTE_ITS ---
Care Management Progress Note 03/14-Dr. Webber requested assistance with an ENT and PCP (Ana Laura) f/u this week for dizziness and otitis media of right ear. Referral faxed to ENT and [facility] this am.
== END 2019-03-13 21:38 | disposition home or self-care (01) ==
PROVIDERS: Emergency Provider Physician Assistant; PCP Family Medicine
DX: H66.91 Otitis media, unspecified, right ear (principal); R42 Dizziness and giddiness; R51 Headache; Z96.22 Myringotomy tube(s) status
CPT/HCPCS: 36415; 80053; 96361; 96374; 96375; 99285; 70450; 70481; 85025; 99284; J1885; J3490

== ENCOUNTER 2019-03-19 14:45 | Emergency (ER) | payer SELFPAY ==
[2019-03-19 14:49] VITALS: BP 133/91; PULSE 111; RESP 18; TEMP 36.8; O2SAT 98
--- NOTE | 2019-03-19 15:19 | W.ED.GENAD ---
Discharge Plan Disposition Patient Disposition: HOME Discharge Details Chief Complaint: EarProblem Clinical Impression: Dizziness, Otitis media, Rash, Sinus pressure Primary Care Provider: Humberto Du ED Provider: Henry Burns Home Meds and New Rx's Prescriptions: New terbinafine 1 % gel 1 applic TP BID 7 Days RF: 0 Continued clindamycin HCl 150 mg capsule 450 mg PO TID 7 Days Qty: 63 RF: 0 naproxen 250 mg tablet 250 mg PO BID PRN (Reason: pain) Qty: 20 RF: 0 Discharge Instructions Instructions: Otitis Media (ED), Dizziness (ED) Additional Instructions: I believe your rash is caused by tinea versicolor. Please use antifungal treatment as prescribed. Take pictures of the rash every 2 days. Follow-up with dermatology. Call [facility] for an appointment. Please follow-up with ENT as scheduled or sooner if available - call [facility] on Thursday. [facility] main number . You need a primary care physician to be seen in follow-up and help coordinate your care. Call to schedule an appointment. Return to the ER for any worsening or new concerning symptoms. Referrals: Humberto Du [Primary Care Provider] - Medical Decision Making 15:20 --23-year-old male with hystory of hypoglycemia here with right inner ear pain, tinnitus and frontal and mild right-sided headache. Patient has been experiencing symptoms over the past 1 month and has had substantial work-up in the emergency department. Patient had MRI of the brain at outside hospital that was noted to show sinusitis and otherwise negative per patient. He completed a full course of Bactrim. Subsequently had a CT of the head and temporal bones here in the emergency department on 03/13/2019. Patient does have chronic (greater than 20 years) tympanostomy tube right ear. No signs of mastoiditis on exam. Patient has full range of motion of his neck with no signs of meningitis. No neuro deficits on exam. Reviewed CT head and temporal bone from 03/13/19: NONCONTRAST HEAD CT: Comparison is made with 2 Feb, 2019. No intracranial hemorrhage, mass or infarct is seen. There has been substantial interval clearing of previously noted sinus disease. Both mastoid air cells appear poorly aerated and appear hypoplastic. There is again noted to be fluid or soft tissue attenuation in the internal auditory canals, right greater than left. The orbits are unremarkable. IMPRESSION: 1. Opacities in both middle ear cavities, unchanged. There is no evidence of bony obstruction. 2. The mastoid air cells appear hypoplastic. CT OF THE TEMPORAL BONES: A post contrast exam was performed. The mastoid air cells appear hypoplastic. There is some opacification of the mastoid air cells. There is also opacification of both middle ear canals. There is no evidence of an ossicular erosion. There is some opacification in the right external auditory canal. No abscess is identified. The temporomandibular joints are unremarkable. IMPRESSION: Opacification of the mastoid air cells. 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 Opacification of bilateral middle ear canals and some opacification of the right external auditory canal. No bony destruction. I reviewed labs 03/13/19: nondiagnostic. Plan will be to continue clindamycin as prescribed and complete full course. I have encouraged him to follow-up with ENT to have tympanostomy tube removed and be reassessed CLARI. Regarding chronic rash: consider tinea veriscolor vs other. Will send RPR. Plan to initiate treatment with terbinafine topical and have him follow-up with dematology. I encourage him to establish PCP follow-up clari and ideally be seen for reassessment within 1 week. I will ask care management for assistance. I stressed that he should return to the ED immediately for worsening or new additional symptoms. HPI General Mode of arrival: ambulatory. Date/Time Provider Initiated Documentation: 03/19/19 15:12. Limitations to Documentation: no limitations. Information obtained by: patient and old records reviewed. HPI Narrative: 23yo m here with chief complaint of dizziness. Patients notes that he has been experiencing intermittent dizziness over the past 1 month. Symptoms can be severe at times. Dizziness is further described as room moving. Not lightheaded or pre-syncopal. He states that symptoms have impacted his ability to concentrate at work. He states that when talking to coworker it seems as though they are moving back and forth. Patient has had associated frontal headache described as sinus pressure. Headache is mild to moderate and intermittent. It is not the worst SRIVASTAVA of his life. He also notes some sharp intermittent pain in right ear. Patient notes right ear fullness and tinitis bilateral R>L. No associated fever. No neck stiffness or pain. Patient was seen here in the ED mulitple times over the past month since onset of symptoms. He was seen here on 02/10/19 and had negative diagnostic workup, including neg ecg, and was started on meclizine. He was seen here on 02/24/19 and diagnosed with pansinusitis. He was treated with clindamycin. He was seen at OSH in [place] while visiting family and had MRI of brain and was noted to have sinusitis but no abnormality of brain. He completed a course of bactrim. Symptoms did seem to improve with antibiotics. On 03/13/[address] imaging that revealed inner ear infection and he was started on clindamycin. He has been taking this but has missed some doses. Patient has not yet established primary care as directed. He has scheduled an appointment with local ENT for next available in April. No recent tick bites. Related Data Home Medications Medication Instructions Recorded Confirmed clindamycin HCl 450 mg PO TID 7 Days #63 cap 03/13/19 naproxen 250 mg PO BID PRN #20 tab 03/13/19 terbinafine 1 applic TP BID 7 Days gm 03/19/19 Previous Rx's Medication Instructions Recorded clindamycin HCl 450 mg PO TID 7 Days #63 cap 03/13/19 naproxen 250 mg PO BID PRN #20 tab 03/13/19 terbinafine 1 applic TP BID 7 Days gm 03/19/19 Allergies Allergy/AdvReac Type Severity Reaction Status Date / Time amoxicillin Allergy Unverified 03/13/19 15:43 bee venom protein (honey bee) Allergy Unverified 03/13/19 15:43 General Stated Complaint: EarProblem KIP: 3 Review of Systems Constitutional Denies body ache(s) and Denies fever(s) ENT Reports as per HPI, Reports dizziness, Denies ear discharge, Reports otalgia, Denies nasal congestion, Denies neck pain, Reports tinnitus, Reports sinus pressure and Denies sore throat Respiratory Denies cough Musculoskeletal Denies neck pain Integumentary/Breasts Reports rash (torso and arms with chronic red blotchy rash x years) Neurologic Reports as per HPI, Reports dizziness, Denies lack of coordination, Denies focal weakness, Denies seizure-like activity and Denies sensory deficit Hematologic/Lymphatic Denies lymphadenopathy [facility] Medical History No significant past medical history (Acute) Surgical History History of placement of ear tubes (Acute) Social History Smoking/Tobacco Use Status: Current every day Tobacco Type: cigarettes Alcohol Intake: former Drug use: Daily Substance use type: marijuana Do you feel safe at home: Yes Do you feel safe in your relationship?: Yes Exam Const General: healthy appearing, comfortable, no acute distress and well developed Orientation: alert, awake and not confused HENMT Head: normocephalic Ears: EAC's normal, mastoids normal, no periauricular adenopathy and TM abnormal (rt TM tube noted with no discharge) General nose exam: external nose normal Face and sinus: no erythema and sinus tenderness frontal Mouth: oropharynx normal and moist mucous membranes Throat: posterior oropharynx normal Eyes Visual Lima: normal visual lima by confrontation Conjunctivae: normal conjunctivae Sclera: normal sclerae Pupils: PERRL and normal by confrontation EOM: EOM intact bilaterally and nystagmus Other: horizontal nystagmus noted worse left > right; no vertical nystagmus Neck Neck: full ROM and no meningeal signs Resp Auscultation: clear to auscultation bilaterally, no rales, no rhonchi and no wheezes Cardio Jugular venous pressure: no JVD Rate: regular rate and not tachycardic Rhythm: regular rhythm GI Palpation: soft, not firm, no guarding, no masses, not rigid and nontender Skin Rashes: rashes noted (hyperpigmented macules coalescing on trunk and UEs, spairing axilla) Neuro General: alert, awake, oriented x3 and tone normal Cranial Nerves: PERRL, accommodation normal, facial strength normal and nystagmus horizontal; not vertical and not rotary Cognition: normal cognition Speech: speech normal Gait: normal gait Motor: muscle tone normal throughout and strength 5/5 throughout Sensory Exam: no sensory deficits noted Coordination: [id number] test normal, Romberg test normal and rapid alternating movement UE normal (nl) Extrem General: no edema Psych Appearance: grossly normal Mental Status: mental status grossly normal Speech and Movement: speech and movement normal Course Vital Signs Temperature 36.8 C 03/19/19 14:49 Pulse 111 H 05/25/19 14:49 Respiratory Rate 18 03/19/19 14:49 Blood Pressure 133/91 H 03/19/19 14:49 Pulse Oximetry 98 03/19/19 14:49 Temperature 36.8 C 03/19/19 14:49 Temperature Source Temporal Artery Scan 03/19/19 14:49 Pulse 111 H 03/19/19 14:49 Respiratory Rate 18 03/19/19 14:49 Respiratory Effort 03/19/19 14:49 Blood Pressure 133/91 H 03/19/19 14:49 Blood Pressure Position Sitting 03/19/19 14:49 Pulse Oximetry 98 03/19/19 14:49 Oxygen Delivery Method Room Air 03/19/19 14:49 Oxygen Flow Rate 0 03/19/19 14:49
--- NOTE | 2019-03-19 15:30 | ED.GENADUL_ITS ---
Discharge Plan Disposition Patient Disposition: HOME Discharge Details Chief Complaint: EarProblem Clinical Impression: Dizziness, Otitis media, Rash, Sinus pressure Primary Care Provider: Humberto Du ED Provider: Henry Burns Home Meds and New Rx's Prescriptions: New terbinafine 1 % gel 1 applic TP BID 7 Days RF: 0 Continued clindamycin HCl 150 mg capsule 450 mg PO TID 7 Days Qty: 63 RF: 0 naproxen 250 mg tablet 250 mg PO BID PRN (Reason: pain) Qty: 20 RF: 0 Discharge Instructions Instructions: Otitis Media (ED), Dizziness (ED) Additional Instructions: I believe your rash is caused by tinea versicolor. Please use antifungal treatment as prescribed. Take pictures of the rash every 2 days. Follow-up with dermatology. Call [facility] for an appointment. Please follow-up with ENT as scheduled or sooner if available - call [facility] on Thursday. [facility] main number . You need a primary care physician to be seen in follow-up and help coordinate your care. Call to schedule an appointment. Return to the ER for any worsening or new concerning symptoms. Referrals: Humberto Du [Primary Care Provider] - Medical Decision Making 15:20 --23-year-old male with hystory of hypoglycemia here with right inner ear pain, tinnitus and frontal and mild right-sided headache. Patient has been experiencing symptoms over the past 1 month and has had substantial work-up in the emergency department. Patient had MRI of the brain at outside hospital that was noted to show sinusitis and otherwise negative per patient. He completed a full course of Bactrim. Subsequently had a CT of the head and temporal bones here in the emergency department on 03/13/2019. Patient does have chronic (greater than 20 years) tympanostomy tube right ear. No signs of mastoiditis on exam. Patient has full range of motion of his neck with no signs of meningitis. No neuro deficits on exam. Reviewed CT head and temporal bone from 03/13/19: NONCONTRAST HEAD CT: Comparison is made with 2 Feb, 2019. No intracranial hemorrhage, mass or infarct is seen. There has been substantial interval clearing of previously noted sinus disease. Both mastoid air cells appear poorly aerated and appear hypoplastic. There is again noted to be fluid or soft tissue attenuation in the internal auditory canals, right greater than left. The orbits are unremarkable. IMPRESSION: 1. Opacities in both middle ear cavities, unchanged. There is no evidence of bony obstruction. 2. The mastoid air cells appear hypoplastic. CT OF THE TEMPORAL BONES: A post contrast exam was performed. The mastoid air cells appear hypoplastic. There is some opacification of the mastoid air cells. There is also opacification of both middle ear canals. There is no evidence of an ossicular erosion. There is some opacification in the right external auditory canal. No abscess is identified. The temporomandibular joints are unremarkable. IMPRESSION: Opacification of the mastoid air cells. 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 Opacification of bilateral middle ear canals and some opacification of the right external auditory canal. No bony destruction. I reviewed labs 03/13/19: nondiagnostic. Plan will be to continue clindamycin as prescribed and complete full course. I have encouraged him to follow-up with ENT to have tympanostomy tube removed and be reassessed CLARI. Regarding chronic rash: consider tinea veriscolor vs other. Will send RPR. Plan to initiate treatment with terbinafine topical and have him follow-up with dematology. I encourage him to establish PCP follow-up clari and ideally be seen for reassessment within 1 week. I will ask care management for assistance. I stressed that he should return to the ED immediately for worsening or new additional symptoms. HPI General Mode of arrival: ambulatory . Date/Time Provider Initiated Documentation: 03/19/19 15:12 . Limitations to Documentation: no limitations . Information obtained by: patient and old records reviewed . HPI Narrative: 23yo m here with chief complaint of dizziness. Patients notes that he has been experiencing intermittent dizziness over the past 1 month. Symptoms can be severe at times. Dizziness is further described as room moving. Not lightheaded or pre-syncopal. He states that symptoms have impacted his ability to concentrate at work. He states that when talking to coworker it seems as though they are moving back and forth. Patient has had associated frontal headache described as sinus pressure. Headache is mild to moderate and intermittent. It is not the worst SRIVASTAVA of his life. He also notes some sharp intermittent pain in right ear. Patient notes right ear fullness and tinitis bilateral R>L. No associated fever. No neck stiffness or pain. Patient was seen here in the ED mulitple times over the past month since onset of symptoms. He was seen here on 02/10/19 and had negative diagnostic workup, including neg ecg, and was started on meclizine. He was seen here on 02/24/19 and diagnosed with pansinusitis. He was treated with clindamycin. He was seen at OSH in [place] while visiting family and had MRI of brain and was noted to have sinusitis but no abnormality of brain. He completed a course of bactrim. Symptoms did seem to improve with antibiotics. On 03/13/[address] imaging that revealed inner ear infection and he was started on clindamycin. He has been taking this but has missed some doses. Patient has not yet established primary care as directed. He has scheduled an appointment with local ENT for next available in April. No recent tick bites. Related Data Home Medications Medication Instructions Recorded Confirmed clindamycin HCl 450 mg PO TID 7 Days #63 cap 03/13/19 naproxen 250 mg PO BID PRN #20 tab 03/13/19 terbinafine 1 applic TP BID 7 Days gm 03/19/19 Previous Rx's Medication Instructions Recorded clindamycin HCl 450 mg PO TID 7 Days #63 cap 03/13/19 naproxen 250 mg PO BID PRN #20 tab 03/13/19 terbinafine 1 applic TP BID 7 Days gm 03/19/19 Allergies Allergy/AdvReac Type Severity Reaction Status Date / Time amoxicillin Allergy Unverified 03/13/19 15:43 bee venom protein (honey bee) Allergy Unverified 03/13/19 15:43 General Stated Complaint: EarProblem KIP: 3 Review of Systems Constitutional Denies body ache(s) and Denies fever(s) ENT Reports as per HPI, Reports dizziness, Denies ear discharge, Reports otalgia, Denies nasal congestion, Denies neck pain, Reports tinnitus, Reports sinus pressure and Denies sore throat Respiratory Denies cough Musculoskeletal Denies neck pain Integumentary/Breasts Reports rash (torso and arms with chronic red blotchy rash x years) Neurologic Reports as per HPI, Reports dizziness, Denies lack of coordination, Denies focal weakness, Denies seizure-like activity and Denies sensory deficit Hematologic/Lymphatic Denies lymphadenopathy [facility] Medical History No significant past medical history (Acute) Surgical History History of placement of ear tubes (Acute) Social History Smoking/Tobacco Use Status: Current every day Tobacco Type: cigarettes Alcohol Intake: former Drug use: Daily Substance use type: marijuana Do you feel safe at home: Yes Do you feel safe in your relationship?: Yes Exam Const General: healthy appearing, comfortable, no acute distress and well developed Orientation: alert, awake and not confused HENMT Head: normocephalic Ears: EAC's normal, mastoids normal, no periauricular adenopathy and TM abnormal (rt TM tube noted with no discharge) General nose exam: external nose normal Face and sinus: no erythema and sinus tenderness frontal Mouth: oropharynx normal and moist mucous membranes Throat: posterior oropharynx normal Eyes Visual Lima: normal visual lima by confrontation Conjunctivae: normal conjunctivae Sclera: normal sclerae Pupils: PERRL and normal by confrontation EOM: EOM intact bilaterally and nystagmus Other: horizontal nystagmus noted worse left > right; no vertical nystagmus Neck Neck: full ROM and no meningeal signs Resp Auscultation: clear to auscultation bilaterally, no rales, no rhonchi and no wheezes Cardio Jugular venous pressure: no JVD Rate: regular rate and not tachycardic Rhythm: regular rhythm GI Palpation: soft, not firm, no guarding, no masses, not rigid and nontender Skin Rashes: rashes noted (hyperpigmented macules coalescing on trunk and UEs, spairing axilla) Neuro General: alert, awake, oriented x3 and tone normal Cranial Nerves: PERRL, accommodation normal, facial strength normal and nystagmus horizontal; not vertical and not rotary Cognition: normal cognition Speech: speech normal Gait: normal gait Motor: muscle tone normal throughout and strength 5/5 throughout Sensory Exam: no sensory deficits noted Coordination: [id number] test normal, Romberg test normal and rapid alternating movement UE normal (nl) Extrem General: no edema Psych Appearance: grossly normal Mental Status: mental status grossly normal Speech and Movement: speech and movement normal Course Vital Signs Temperature 36.8 C 03/19/19 14:49 Pulse 111 H 05/25/19 14:49 Respiratory Rate 18 03/19/19 14:49 Blood Pressure 133/91 H 03/19/19 14:49 Pulse Oximetry 98 03/19/19 14:49 Temperature 36.8 C 03/19/19 14:49 Temperature Source Temporal Artery Scan 03/19/19 14:49 Pulse 111 H 03/19/19 14:49 Respiratory Rate 18 03/19/19 14:49 Respiratory Effort 03/19/19 14:49 Blood Pressure 133/91 H 03/19/19 14:49 Blood Pressure Position Sitting 03/19/19 14:49 Pulse Oximetry 98 03/19/19 14:49 Oxygen Delivery Method Room Air 03/19/19 14:49 Oxygen Flow Rate 0 03/19/19 14:49
[2019-03-19 16:15] VITALS: BP 124/78; PULSE 75; RESP 18; TEMP 37; O2SAT 98
[2019-03-19 16:29] VITALS: BP 124/78; PULSE 75; RESP 18; TEMP 37; O2SAT 98
--- NOTE | 2019-03-22 12:38 | PDOC.ERCMPRO ---
Care Management Progress Note 03/22-Dr. Sirena Burns requested assistance with a PCP (Ana Laura) this week f/u for vertigo, rash. Patient seen in ED three times this month. Referral faxed to [facility] this am.
--- NOTE | 2019-03-22 12:43 | CMPROGNOTE_ITS ---
Care Management Progress Note 03/22-Dr. Sirena Burns requested assistance with a PCP (Ana Laura) this week f/u for vertigo, rash. Patient seen in ED three times this month. Referral faxed to [facility] this am.
[2019-03-23 10:09] LABS: Syphilis Serology (RPR) Negative (Negative)
== END 2019-03-19 16:31 | disposition home or self-care (01) ==
LOC: ER 15:39
PROVIDERS: Emergency Provider Student in an Organized Health Care Education/Training Program; PCP Family Medicine
DX: R42 Dizziness and giddiness (principal); H66.91 Otitis media, unspecified, right ear; R21 Rash and other nonspecific skin eruption; R51 Headache
CPT/HCPCS: 99284; 86592

== ENCOUNTER 2019-04-02 08:45 | Emergency (ER) | payer SELFPAY ==
[2019-04-02 08:47] VITALS: BP 152/88; PULSE 90; RESP 20; TEMP 36.7; O2SAT 97
[2019-04-02] MEDS: Normal Saline 1,000 ML 1000 ML IV (09:05)
--- NOTE | 2019-04-02 09:07 | W.ED.GENAD ---
Discharge Plan Disposition Patient Disposition: HOME Condition: Stable Discharge Details Chief Complaint: Abd Prob Clinical Impression: Diarrhea Primary Care Provider: Humberto Du ED Provider: Joey Hughes Home Meds and New Rx's Prescriptions: New ondansetron 4 mg tablet,disintegrating 4 mg PO QID PRN (Reason: nausea and vomiting) Qty: 10 RF: 0 Continued naproxen 250 mg tablet 250 mg PO BID PRN (Reason: pain) Qty: 20 RF: 0 Discharge Instructions Instructions: Acute Diarrhea (ED) Additional Instructions: He may continue to take [id number]-acxybke acetaminophen or Motrin as needed for pain control and use prescribed medication as needed for any further nausea. It is very important that you stay well-hydrated and continue to increase fluid intake and you may slowly advance her diet as tolerated. Return to the emergency department for any new or worsening symptoms otherwise follow-up with your primary care provider if not improving over the next 5 days. Referrals: Humberto Du [Primary Care Provider] - (As needed for reassessment) Discharge Data Discharge Date/Time-TO BE ENTERED AT DEPARTURE: 04/02/19 12:11 Medical Decision Making Patient presenting to the emergency department for chief complaint of abdominal pain/flank pain. Patient states that this started yesterday evening and was associated with some diarrhea. This morning he woke up with significant amount of pain and discomfort and try to see if it would go away on its own but it did not. Due to this he is presenting to the emergency department for evaluation. Physical exam shows right CVA tenderness, right lower quadrant tenderness at McBurney's point, and otherwise diffuse abdominal pain. Physical exam is otherwise unremarkable. Patient does state history of kidney stones but does report that this feels different and significantly worse than any kidney stone he has had. He does also report some loss of appetite and nausea. Given this I do feel the labs and CT imaging is needed for evaluation and consideration of appendicitis, renal calculi, other intra-abdominal pathology. Labs are reviewed and show no leukocytosis, sodium of 150 and chloride of 112 with ALT elevated to 122 otherwise nonspecific nondiagnostic labs. Review of lab CT imaging and radiologist interpretation shows mild ileocolic lymph nodes that are nonspecific along with mild fat density wall thickening of the colon. Likely body habitus versus chronic inflammatory disease. Patient reassessed and states that he is doing significantly better . Patient was offered further IV fluids given that his IV was not functional after CT scan. Patient refused any further IV fluids but did state he would orally hydrate. Patient was able to intake appropriate oral hydration and food. Given low sodium patient was strongly encouraged to continue hydration and was prescribed Zofran for home use for any further nausea. Return precautions were discussed. After discussion of diagnosis and plan of care patient is no further needs, questions, or concerns and states clear understanding to return to the emergency department for any worsening symptoms. HPI General Mode of arrival: ambulatory. Date/Time Provider Initiated Documentation: 04/02/19 08:49. Limitations to Documentation: no limitations. Information obtained by: patient, RN notes reviewed and old records reviewed. History of Present Illness 23 year old M presents to the emergency department with the chief complaint of Abdominal/flank pain, described as severe, with intensity rated at 9. Quality is described as sharp, and is localized to the abdomen (RLQ). Patient reports radiation to back. Patient started experiencing this day(s) (1) and it has been constant. No relieving factors improve symptom(s), No exacerbating factors reported . Patient did receive the following treatments prior to arrival, none Related Data Home Medications Medication Instructions Recorded Confirmed naproxen 250 mg PO BID PRN #20 tab 03/13/19 04/02/19 ondansetron 4 mg PO QID PRN #10 tab 04/02/19 Previous Rx's Medication Instructions Recorded naproxen 250 mg PO BID PRN #20 tab 03/13/19 ondansetron 4 mg PO QID PRN #10 tab 04/02/19 Allergies Allergy/AdvReac Type Severity Reaction Status Date / Time amoxicillin Allergy Unverified 04/02/19 08:51 bee venom protein (honey bee) Allergy Unverified 04/02/19 08:51 General Stated Complaint: Abd Prob KIP: 3 Review of Systems Constitutional Denies chills, Denies fever(s) and Reports poor appetite Cardiovascular Denies chest pain and Denies dyspnea Respiratory Denies cough and Denies dyspnea Gastrointestinal Reports as per HPI, Reports abdominal pain, Denies melena, Denies change in bowel habits, Denies constipation, Reports diarrhea, Reports nausea and Denies vomiting Genitourinary Denies hematuria, Denies difficulty urinating, Reports flank pain, Denies urinary hesitancy, Denies urinary incontinence and Denies urinary urgency Integumentary/Breasts Denies rash [facility] Medical History No significant past medical history (Acute) Vertigo (Acute) Surgical History History of placement of ear tubes (Acute) Social History Smoking/Tobacco Use Status: Current every day Tobacco Type: cigarettes Alcohol Intake: current Alcohol Intake frequency: holidays/special occasions only Alcohol type: beer Drug use: Daily Substance use type: marijuana Do you feel safe at home: Yes Do you feel safe in your relationship?: Yes Exam Const General: cooperative Orientation: alert, awake and oriented x3 Resp Effort & Inspection: normal respiratory effort and able to speak in complete sentences Auscultation: clear to auscultation bilaterally Cardio Rate: regular rate Rhythm: regular rhythm Heart Sounds: S1 normal and S2 normal GI Inspection: obesity Palpation: soft, no hepatosplenomegaly, not firm, guarding in the RLQ, no masses, no pulsatile masses, not rigid, no splenomegaly and tender in the RLQ and at McBurney's point; Robertson's sign negative, with no rebound tenderness and Rovsing's sign negative Auscultation: normal bowel sounds Back/Spine/Pelvis Back: CVA tenderness (Right) Neuro General: alert, awake, oriented x3, gait normal and moves all extremities Course Vital Signs Temperature 36.7 C 04/02/19 08:47 Pulse 90 04/02/19 08:47 Respiratory Rate 20 04/02/19 08:47 Blood Pressure 152/88 H 04/02/19 08:47 Pulse Oximetry 97 04/02/19 08:47 Temperature 36.7 C 04/02/19 08:47 Temperature Source Skin 04/02/19 08:47 Pulse 90 04/02/19 08:47 Respiratory Rate 20 04/02/19 08:47 Respiratory Effort Non-Labored 04/02/19 08:54 Blood Pressure 152/88 H 04/02/19 08:47 Blood Pressure Position Sitting 04/02/19 08:47 Pulse Oximetry 97 04/02/19 08:47 Oxygen Delivery Method Room Air 04/02/19 08:47 Oxygen Flow Rate 0 04/02/19 08:47 Pain Level 9 04/02/19 08:47
--- NOTE | 2019-04-02 09:13 | ED.GENADUL_ITS ---
Discharge Plan Disposition Patient Disposition: HOME Condition: Stable Discharge Details Chief Complaint: Abd Prob Clinical Impression: Diarrhea Primary Care Provider: Humberto Du ED Provider: Joey Hughes Home Meds and New Rx's Prescriptions: New ondansetron 4 mg tablet,disintegrating 4 mg PO QID PRN (Reason: nausea and vomiting) Qty: 10 RF: 0 Continued naproxen 250 mg tablet 250 mg PO BID PRN (Reason: pain) Qty: 20 RF: 0 Discharge Instructions Instructions: Acute Diarrhea (ED) Additional Instructions: He may continue to take [id number]-juhfnlo acetaminophen or Motrin as needed for pain control and use prescribed medication as needed for any further nausea. It is very important that you stay well-hydrated and continue to increase fluid intake and you may slowly advance her diet as tolerated. Return to the emergency department for any new or worsening symptoms otherwise follow-up with your primary care provider if not improving over the next 5 days. Referrals: Humberto Du [Primary Care Provider] - (As needed for reassessment) Discharge Data Discharge Date/Time-TO BE ENTERED AT DEPARTURE: 04/02/19 12:11 Medical Decision Making Patient presenting to the emergency department for chief complaint of abdominal pain/flank pain. Patient states that this started yesterday evening and was associated with some diarrhea. This morning he woke up with significant amount of pain and discomfort and try to see if it would go away on its own but it did not. Due to this he is presenting to the emergency department for evaluation. Physical exam shows right CVA tenderness, right lower quadrant tenderness at McBurney's point, and otherwise diffuse abdominal pain. Physical exam is otherwise unremarkable. Patient does state history of kidney stones but does report that this feels different and significantly worse than any kidney stone he has had. He does also report some loss of appetite and nausea. Given this I do feel the labs and CT imaging is needed for evaluation and consideration of appendicitis, renal calculi, other intra-abdominal pathology. Labs are reviewed and show no leukocytosis, sodium of 150 and chloride of 112 with ALT elevated to 122 otherwise nonspecific nondiagnostic labs. Review of lab CT imaging and radiologist interpretation shows mild ileocolic lymph nodes that are nonspecific along with mild fat density wall thickening of the colon. Likely body habitus versus chronic inflammatory disease. Patient reassessed and states that he is doing significantly better . Patient was offered further IV fluids given that his IV was not functional after CT scan. Patient refused any further IV fluids but did state he would orally hydrate. Patient was able to intake appropriate oral hydration and food. Given low sodium patient was strongly encouraged to continue hydration and was prescribed Zofran for home use for any further nausea. Return precautions were discussed. After discussion of diagnosis and plan of care patient is no further needs, questions, or concerns and states clear understanding to return to the emergency department for any worsening symptoms. HPI General Mode of arrival: ambulatory . Date/Time Provider Initiated Documentation: 04/02/19 08:49 . Limitations to Documentation: no limitations . Information obtained by: patient, RN notes reviewed and old records reviewed . History of Present Illness 23 year old M presents to the emergency department with the chief complaint of Abdominal/flank pain, described as severe, with intensity rated at 9. Quality is described as sharp, and is localized to the abdomen (RLQ). Patient reports radiation to back. Patient started experiencing this day(s) (1) and it has been constant. No relieving factors improve symptom(s), No exacerbating factors reported . Patient did receive the following treatments prior to arrival, none Related Data Home Medications Medication Instructions Recorded Confirmed naproxen 250 mg PO BID PRN #20 tab 03/13/19 04/02/19 ondansetron 4 mg PO QID PRN #10 tab 04/02/19 Previous Rx's Medication Instructions Recorded naproxen 250 mg PO BID PRN #20 tab 03/13/19 ondansetron 4 mg PO QID PRN #10 tab 04/02/19 Allergies Allergy/AdvReac Type Severity Reaction Status Date / Time amoxicillin Allergy Unverified 04/02/19 08:51 bee venom protein (honey bee) Allergy Unverified 04/02/19 08:51 General Stated Complaint: Abd Prob KIP: 3 Review of Systems Constitutional Denies chills, Denies fever(s) and Reports poor appetite Cardiovascular Denies chest pain and Denies dyspnea Respiratory Denies cough and Denies dyspnea Gastrointestinal Reports as per HPI, Reports abdominal pain, Denies melena, Denies change in bowel habits, Denies constipation, Reports diarrhea, Reports nausea and Denies vomiting Genitourinary Denies hematuria, Denies difficulty urinating, Reports flank pain, Denies urinary hesitancy, Denies urinary incontinence and Denies urinary urgency Integumentary/Breasts Denies rash [facility] Medical History No significant past medical history (Acute) Vertigo (Acute) Surgical History History of placement of ear tubes (Acute) Social History Smoking/Tobacco Use Status: Current every day Tobacco Type: cigarettes Alcohol Intake: current Alcohol Intake frequency: holidays/special occasions only Alcohol type: beer Drug use: Daily Substance use type: marijuana Do you feel safe at home: Yes Do you feel safe in your relationship?: Yes Exam Const General: cooperative Orientation: alert, awake and oriented x3 Resp Effort & Inspection: normal respiratory effort and able to speak in complete sentences Auscultation: clear to auscultation bilaterally Cardio Rate: regular rate Rhythm: regular rhythm Heart Sounds: S1 normal and S2 normal GI Inspection: obesity Palpation: soft, no hepatosplenomegaly, not firm, guarding in the RLQ, no masses, no pulsatile masses, not rigid, no splenomegaly and tender in the RLQ and at McBurney's point; Robertson's sign negative, with no rebound tenderness and Rovsing's sign negative Auscultation: normal bowel sounds Back/Spine/Pelvis Back: CVA tenderness (Right) Neuro General: alert, awake, oriented x3, gait normal and moves all extremities Course Vital Signs Temperature 36.7 C 04/02/19 08:47 Pulse 90 04/02/19 08:47 Respiratory Rate 20 04/02/19 08:47 Blood Pressure 152/88 H 04/02/19 08:47 Pulse Oximetry 97 04/02/19 08:47 Temperature 36.7 C 04/02/19 08:47 Temperature Source Skin 04/02/19 08:47 Pulse 90 04/02/19 08:47 Respiratory Rate 20 04/02/19 08:47 Respiratory Effort Non-Labored 04/02/19 08:54 Blood Pressure 152/88 H 04/02/19 08:47 Blood Pressure Position Sitting 04/02/19 08:47 Pulse Oximetry 97 04/02/19 08:47 Oxygen Delivery Method Room Air 04/02/19 08:47 Oxygen Flow Rate 0 04/02/19 08:47 Pain Level 9 04/02/19 08:47
[2019-04-02] MEDS: Ketorolac 30 MG/ML VIAL IVP (09:14)
[2019-04-02] MEDS: Ondansetron 4 MG/2 ML VIAL IVP (09:14)
[2019-04-02] MEDS: Normal Saline Flush 10 ML SYR IVP (09:15)
[2019-04-02 09:16] LABS: Abs Immature Grans 0.01 k/cumm (0.0-0.09); Absolute Basophil Count 0.02 k/cumm (0.0-0.2); Absolute Eosinophil Count 0.22 k/cumm (0.0-0.7); Absolute Lymphocyte Count 1.79 k/cumm (1.2-3.4); Absolute Monocyte Count 1.19 k/cumm (0.11-0.7); Absolute Neutrophil Count 5.62 k/cumm (1.2-6.7); Basophils % 0.2; Eosinophils % 2.5; HCT 45.5 % (40.0-50.0); HGB 16.2 g/dL (13.5-17.5); Immature Grans % 0.1; Lymphocytes % 20.2; Mean Corp. HGB Concentration 35.6 g/dL (32.0-36.0); Mean Corpuscular Hemoglobin 30.1 pg (27.0-33.0); Mean Corpuscular Volume 84.4 fL (80-95); Mean Platelet Volume 9.6 fL (8.0-11.0); Monocytes % 13.4; Neutrophils % 63.6; Platelet Count 334 x1000/uL (130-400); RBC 5.39 m/cumm (4.50-6.00); RBC Distribution Width 12.9 % (11.8-14.1); White Blood Cell Count 8.85 k/cumm (4.4-10.8)
[2019-04-02 09:31] LABS: ALT 122 U/L (12-78); AST 29 U/L (15-37); Albumin 3.9 g/dL (3.4-5.0); Alkaline Phosphatase 95 U/L (46-116); Anion Gap 10.9 mmol/L (3-11); BUN 12 mg/dL (7-18); Bilirubin, Total 0.5 mg/dL (0.2-1.0); CO2 27.1 mmol/L (21.0-32.0); CREATININE 0.94 mg/dL (0.70-1.30); Calcium 9.2 mg/dL (8.5-10.1); Chloride 112 mmol/L (98-107); Glucose 96 mg/dL (70-100); Lipase 63 U/L (73-393); Potassium 4.2 mmol/L (3.5-5.1); Sodium 150 mmol/L (136-145); Total Protein 7.6 g/dL (6.4-8.2)
--- NOTE | 2019-04-02 09:38 | DI.CT_ITS ---
SYMPTOM/DIAGNOSIS: RLQ ABD PAIN ABDOMEN AND PELVIC CT: Comparison is made with 08/10/07. No acute abnormality is seen in the lung bases. There is diffuse decreased attenuation of the liver suggesting fatty infiltration. No hepatic mass is seen. The portal, superior mesenteric and splenic veins are patent. The gallbladder is negative. There is no biliary ductal dilatation. The pancreas, spleen and adrenal glands are unremarkable. Incidental note is made of a 1.7 cm. cyst in the superior pole of the left kidney. This was present on the prior examination. The kidneys show normal and symmetric enhancement. No suspicious solid renal mass or obstruction is seen. The urinary bladder is intact. The reproductive organs are unremarkable. The abdominal aorta is of normal caliber. No aneurysmal dilatation is seen. Mildly prominent lymph nodes are seen in the right lower quadrant. No significant abdominal or pelvic ascites or pneumoperitoneum is present. The bowel shows no evidence of obstruction or inflammation. There is a normal appendix present. There do appear to be a few diverticula in the descending colon but no findings to suggest acute diverticulitis. Low attenuation is seen in the colonic bowel wall, likely reflecting the patient's body habitus. No acute osseous abnormality is identified. IMPRESSION: Mildly prominent lymph nodes in the right lower quadrant. These are nonspecific. No evidence of an acute abdominal or pelvic process.
[2019-04-02] MEDS: Omnipaque 350 MG/ML 100 ML BTL IJ (09:40)
--- NOTE | 2019-04-02 10:02 | NUR.NOTE ---
Nursing Note: Pt returned from CT w/infiltrated IV. IV DC'd. Per EMILY Cook pt does not need another IV at this time pending CT results. Will CTM.
[2019-04-02 10:12] LABS: Bilirubin Negative (Negative); Blood Negative (Negative); Clarity Clear; Glucose Negative (Negative); Ketones Negative (Negative); Leukocyte Esterase Negative (Negative); Nitrite Negative (Negative); Urobilinogen 0.2 EU/dL (Up TO 0.2); pH 5.5 (5-8)
[2019-04-02 10:21] LABS: Bacteria Rare HPF (Negative); C & S Indicated? No; Casts Negative LPF (Negative); Crystals Negative HPF (Negative); Epithelial Cells Negative HPF (Negative); Mucus Negative (Negative); Other Cells Rare Renal (Negative); RBC 0-2 (0-2); WBC Negative HPF (0-5)
--- NOTE | 2019-04-02 10:24 | DI.VRAD_ITS ---
EXAM: CT Abdomen and Pelvis With Contrast EXAM DATE/TIME: 04/02/2019 9:05 AM CLINICAL HISTORY: 23 years old, male; Abdominal pain; Localized; Right lower quadrant (rlq); Patient HX: Severe rlq pain since last night, no surgeries. TECHNIQUE: Imaging protocol: Axial computed tomography images of the abdomen and pelvis with intravenous contrast. Coronal and sagittal reformatted images were created and reviewed. Radiation optimization: All CT scans at this facility use at least one of these dose optimization techniques: automated exposure control; mA and/or kV adjustment per patient size (includes targeted exams where dose is matched to clinical indication); or iterative reconstruction. Contrast material: ONIPAQUE 350; Contrast volume: 100 ml; Contrast route: IV; COMPARISON: No relevant prior studies available. FINDINGS: ABDOMEN: Liver: Mild diffuse fatty infiltration of the liver. Gallbladder and bile ducts: Unremarkable. No calcified stones. No ductal dilation. Pancreas: Unremarkable. No ductal dilation. Spleen: Unremarkable. No splenomegaly. Adrenals: Normal. No mass. Kidneys and ureters: 17 mm cyst in the left kidney upper pole. Normal right kidney. No hydronephrosis. Stomach and bowel: Mild generalized fat density, wall thickening of the colon, likely secondary to patient body habitus versus the sequelae of chronic inflammatory disease. No active inflammatory bowel disease identified. The stomach and small bowel are unremarkable. No bowel obstruction. Appendix: Normal appendix. PELVIS: Bladder: Unremarkable as visualized. Reproductive: Unremarkable as visualized. ABDOMEN and PELVIS: Intraperitoneal space: Unremarkable. No free air. No significant fluid collection. Bones/joints: No acute fracture. Soft tissues: Unremarkable. Vasculature: Unremarkable. No abdominal aortic aneurysm. Lymph nodes: Multiple slightly prominent ileocolic lymph nodes, nonspecific. IMPRESSION: 1. Mildly prominent ileocolic lymph nodes, nonspecific. 2. Mild fat density wall thickening of the colon, likely body habitus versus the sequelae of chronic inflammatory disease. Dictated and Authenticated by: Kelton Schwab MD. Ordering:ANDREW Cook MD
[2019-04-02 11:01] VITALS: BP 128/69; PULSE 72; TEMP 36.8; O2SAT 96
[2019-04-02 12:11] VITALS: BP 120/70; PULSE 68; RESP 18; TEMP 36.7; O2SAT 96
== END 2019-04-02 12:11 | disposition home or self-care (01) ==
PROVIDERS: Emergency Provider Nurse Practitioner Family; PCP Family Medicine
DX: R19.7 Diarrhea, unspecified (principal)
CPT/HCPCS: 36415; 80053; 83690; 96374; 96375; 99285; 74177; 81003; 81015; 85025; 99284; J1885; J2405; J3490

== ENCOUNTER 2019-06-17 02:14 | Emergency (ER) | payer SELFPAY ==
[2019-06-17 02:14] VITALS: BP 141/65; PULSE 102; RESP 18; TEMP 36.3; O2SAT 94
--- NOTE | 2019-06-17 02:15 | W.ED.GENAD ---
Discharge Plan Disposition Patient Disposition: HOME Condition: Fair Discharge Details Chief Complaint: Nausea/Vomit/Diar Clinical Impression: Acute alcohol intoxication Primary Care Provider: Humberto Du ED Provider: Kd Powell Home Meds and New Rx's Prescriptions: No Action No Known Home Meds RF: 0 Discharge Instructions Instructions: Alcohol Intoxication (ED) Additional Instructions: You are released into the care of sober individual who will take you to your mother's way you will stay and be watched until you have sobered up. Drink in moderation in the future. Return to ED for persistent vomiting, worsening mental status, other concerns or problems. Referrals: Humberto Du [Primary Care Provider] - Medical Decision Making Patient here with alcohol intoxication. No active vomiting but he is having nausea. We will give Zofran ODT and observe. Sober friend here with him. 04:00 - Patient's vitals have remained stable. He wakes up easily with verbal stimuli. He has had no vomiting here. Sober friend is here and agrees to take him back to the patient's mother's apartment where she will watch him until he aneta up. HPI General Mode of arrival: EMS. Date/Time Provider Initiated Documentation: 06/17/19 03:55. Limitations to Documentation: altered mental status. Information obtained by: patient, EMS and RN notes reviewed. HPI Narrative: Patient is brought in by EMS for alcohol intoxication and vomiting. Patient reports drinking a large amount of vodka. He reportedly was on the side of the road vomiting. He is brought in by EMS for evaluation. He denies any trauma. There has been no fall. Denies any pain anywhere. Is not a daily drinker. Related Data Home Medications Medication Instructions Recorded Confirmed Unknown [No Known Home Meds] 06/17/19 06/17/19 Allergies Allergy/AdvReac Type Severity Reaction Status Date / Time amoxicillin Allergy Unverified 06/17/19 02:17 bee venom protein (honey bee) Allergy Unverified 06/17/19 02:17 General KIP: 3 Review of Systems Review of Systems Unobtainable due to mental status (intoxication) [facility] Medical History No significant past medical history (Acute) Vertigo (Acute) Surgical History History of placement of ear tubes (Acute) Social History Smoking/Tobacco Use Status: Current every day Tobacco Type: cigarettes Alcohol Intake: current Alcohol Intake frequency: holidays/special occasions only Alcohol type: beer Drug use: Daily Substance use type: former substance user and marijuana Do you feel safe at home: Yes Do you feel safe in your relationship?: Yes Exam Narrative Exam Narrative: Vitals: Afebrile. Mildly elevated heart rate and blood pressure. Const: Overweight male in NAD, appears intoxicated. HEENT: NC/AT. Normal facial exam. Eyes: PERRL. Neck: Supple. Trachea midline. Lungs: Normal respiratory effort. Lungs are clear. Cor: RRR without murmur/gallop. Good radial pulses. GI: Soft. NT/ND. No guarding or rebound. Neuro: A+O x 3. CN grossly in tact. Slurred speech. Gait not tested. Strength and sensation grossly in tact. Ext: No C/C/E. No deformity or tenderness. Skin: Warm and dry without rash.
[2019-06-17] MEDS: Ondansetron O.D.T. 4 MG TABEF PO (02:25)
[2019-06-17 03:58] VITALS: BP 136/84; PULSE 84; RESP 18; TEMP 36.3; O2SAT 93
== END 2019-06-17 04:00 | disposition home or self-care (01) ==
PROVIDERS: Emergency Provider Emergency Medicine; PCP Family Medicine
DX: F10.129 Alcohol abuse with intoxication, unspecified (principal); R11.2 Nausea with vomiting, unspecified
CPT/HCPCS: 99283